=== PATIENT | female | born 1955 | race Caucasian/White ===

== ENCOUNTER 2025-10-26 08:18 | Outpatient (CLI) | payer MEDICARE | END 2025-10-26 08:19 | disposition home or self-care (01) | LOC: BICMAMMO 08:18 | PROVIDERS: ATTEND Nurse Practitioner Family | DX: Z12.31 Encounter for screening mammogram for malignant neoplasm of breast (principal); Z91.89 Other specified personal risk factors, not elsewhere classified | CPT/HCPCS: 77063; 77067 ==